=== PATIENT | male | born 1970 | race African-American/Black ===

== ENCOUNTER 2025-06-26 17:39 | Emergency (ER) | payer BC, SELFPAY ==
--- NOTE | 2025-06-26 17:59 | ED.SKABFB ---
HPI - Skin/Abscess/Foreign Bdy General Chief complaint: Skin/Abscess/Foreign Body Stated complaint: Skin Issues Time Seen by Provider: 06/26/25 17:59 Source: patient Mode of arrival: ambulatory Limitations: no limitations History of Present Illness HPI narrative: itching to back for over 1 year. Patient went to [place] [facility] and also to [place] due to itching of back. Patient thinks that back is itching due to a spot that was seen on his right kidney several years ago [place]. Patient states he had a scan while in [place] that showed the spot to his right kidney. Was sent to a specialist and had another scan. Specialist told him at that the spot did not grow so it did not need to be biopsied and to keep an eye on it. Patient states he has told his primary care physician about the spot to his right kidney but has never had another scan. Now that he has the back itching he thinks this spot and itching is related. Asked both ERs to scan him and they refused. States the last ER told him that his itching was due to folliculitis. Patient states that he finished antibiotic and had no changed itching. Was given hydrocortisone cream but states he is having difficulty reaching his back to apply the cream. When patient saw his primary care physician and told him about the itching he was told that it was due to old age . All systems reviewed and negative except as noted above. Related Data Home Medications ?Medication ?Instructions ?Recorded ?Confirmed ?Last Taken ?Type atorvastatin 20 mg tablet mg 06/26/25 Unknown History glipizide 5 mg tablet, extended mg PO 06/26/25 Unknown History release 24 hr hydrochlorothiazide 06/26/25 Unknown History hydrocortisone 2.5 % topical cream applic topical 06/26/25 Unknown History lisinopril 20 tablet 06/26/25 Unknown History mg-hydrochlorothiazide 12.5 mg tablet metformin 500 mg tablet,extended mg PO 06/26/25 Unknown History release 24 hr Allergies Allergy/AdvReac Type Severity Reaction Status Date / Time No Known Allergies Allergy Verified 06/26/25 17:57 PMFSH Comments At time of signature, agree with nursing past medical, surgical, social and family history. There is no relevant family history pertinent to the presenting complaint. Exam Narrative: GENERAL: This is a well-nourished, well-developed patient, in no apparent distress. HEAD: normocephalic, atraumatic. EYES: PERRL. Sclera clear/white. Vision is grossly intact. EARS: External ears normal NOSE: External nose normal NECK: Neck supple, non-tender without lymphadenopathy, masses or thyromegaly. CARDIOVASCULAR: Regular rate and rhythm without murmurs, gallops, or rubs. RESPIRATORY: Clear to auscultation. Breath sounds equal bilaterally. No wheezes, rales, or rhonchi. SKIN: warm, Dry, intact, good turgor. diffuse hyperpigmentation to upper and mid back, scaly NEURO: awake, alert, and oriented to person, place and time. There were no obvious focal neurologic abnormalities. EXTREMITIES: No joint tenderness, effusion, or edema noted. Course Course Level of Care: Express Care Visit Vital Signs Vital signs: Reviewed MDM - Skin/Abscess/Foreign Bdy MDM Narrative Medical decision making narrative: scaly, hyperpigmented skin to back concerning for eczema. There are no pustules concerning for folliculitis. Will treat with triamcinolone, recommend moisturizer twice a day. Patient given referral to band top maker from [facility]. Will follow up with band top maker if triamcinolone and moisturizing is not resolving itching. Differential Diagnosis Differential diagnosis: Likely urticaria, eczema and contact dermatitis Discharge Plan Discharge Clinical Impression: Eczema Qualifiers: Eczema type: unspecified Qualified Code(s): L30.9 - Dermatitis, unspecified Patient Disposition: Home Condition: Stable Instructions: Eczema (ED) Additional Instructions: Apply steroid cream as prescribed. Apply a moisturizer twice a day for eczema such as Eucerin. Moisturizer should be non scented. Follow-up with band top maker if itching is not improving. Patient Language: Serbian Prescriptions: New triamcinolone acetonide 0.1 % cream 1 applic topical BID Qty: 454 [id number] No Action atorvastatin 20 mg tablet lisinopril-hydrochlorothiazide 20-12.5 mg tablet glipizide 5 mg tablet extended release 24hr PO hydrocortisone 2.5 % cream TOPICAL metformin 500 mg tablet extended release 24 hr PO hydrochlorothiazide Follow-up/Referrals: Brady,Wayne Adames MD [Primary Care Provider] Time of Disposition: 18:21
[2025-06-26 18:00] VITALS: BP 153/92; PULSE 64; RESP 18; TEMP 36.9; O2SAT 100
== END 2025-06-26 18:30 | disposition home or self-care (01) ==
PROVIDERS: Emergency Provider Nurse Practitioner Family; PCP Family Medicine
DX: L30.9 Dermatitis, unspecified (principal); I10 Essential (primary) hypertension; E11.9 Type 2 diabetes mellitus without complications; Z79.84 Long term (current) use of oral hypoglycemic drugs; E78.00 Pure hypercholesterolemia, unspecified
CPT/HCPCS: 99203; G0463